=== PATIENT | female | born 1985 | race African-American/Black ===

== ENCOUNTER 2016-11-12 14:52 | Outpatient (CLI) | payer OTHER ==
[2016-11-12 15:18] LABS: BASOPHILS % 0.6 (0.0-1.5); EOSINOPHILS % 5.3 % (0.0-6.8); LYMPHOCYTES # 2.1 # k/uL (0.6-4.0); MEAN CORPUSCULAR HEMOGLOBIN 28.2 pg (28.0-34.0); MONOCYTES # 0.2 # k/uL (0.0-0.9); MONOCYTES % 4.5 % (0.0-11.0)
== END 2016-11-12 14:53 ==
LOC: LAB 14:52
PROVIDERS: ATTEND Nurse Practitioner Psychiatric/Mental Health
DX: D72.819 Decreased white blood cell count, unspecified (principal)
CPT/HCPCS: 36415; 85025

== ENCOUNTER 2017-01-08 08:27 | Outpatient (CLI) | payer OTHER ==
[2017-01-08 09:15] LABS: BASOPHILS % 0.4 (0.0-1.5); EOSINOPHILS % 0.8 % (0.0-6.8); LYMPHOCYTES # 1.1 # k/uL (0.6-4.0); MEAN CORPUSCULAR HEMOGLOBIN 27.6 pg (28.0-34.0); MONOCYTES # 0.2 # k/uL (0.0-0.9); MONOCYTES % 5.5 % (0.0-11.0)
== END 2017-01-08 08:30 ==
LOC: POD 08:27 → LAB 08:30
PROVIDERS: ATTEND Nurse Practitioner Psychiatric/Mental Health
DX: Z51.81 Encounter for therapeutic drug level monitoring (principal); Z79.899 Other long term (current) drug therapy; E03.9 Hypothyroidism, unspecified
CPT/HCPCS: 36415; 84443; 85025

== ENCOUNTER 2017-01-19 14:41 | Outpatient (CLI) | payer OTHER | END 2017-01-19 14:42 | LOC: POD 14:41 | PROVIDERS: ATTEND Podiatrist | DX: B35.1 Tinea unguium (principal); M79.674 Pain in right toe(s); M79.675 Pain in left toe(s) | CPT/HCPCS: 11721; G0463 ==

== ENCOUNTER 2017-02-10 08:58 | Outpatient (CLI) | payer OTHER ==
[2017-02-10 09:25] LABS: BASOPHILS % 1.5 (0.0-1.5); EOSINOPHILS % 2.3 % (0.0-6.8); MEAN CORPUSCULAR HEMOGLOBIN 27.8 pg (28.0-34.0); MEAN CORPUSCULAR VOLUME 92.8 fl (80.0-100.0); MONOCYTES % 6.1 % (0.0-11.0); NEUTROPHILS # 1.4 # k/uL (1.4-7.7)
== END 2017-02-10 09:00 ==
LOC: LAB 08:58
PROVIDERS: ATTEND Nurse Practitioner Psychiatric/Mental Health
DX: Z51.81 Encounter for therapeutic drug level monitoring (principal); Z79.899 Other long term (current) drug therapy
CPT/HCPCS: 36415; 85025

== ENCOUNTER 2017-03-03 09:17 | Outpatient (CLI) | payer OTHER ==
[2017-03-03 09:38] LABS: BASOPHILS % 0.8 (0.0-1.5); EOSINOPHILS % 4.1 % (0.0-6.8); MEAN CORPUSCULAR HEMOGLOBIN 28.1 pg (28.0-34.0); MEAN CORPUSCULAR VOLUME 92.8 fl (80.0-100.0); MONOCYTES % 6.9 % (0.0-11.0); NEUTROPHILS # 2.2 # k/uL (1.4-7.7)
== END 2017-03-03 09:20 ==
LOC: LAB 09:17
PROVIDERS: ATTEND Nurse Practitioner Psychiatric/Mental Health
DX: Z51.81 Encounter for therapeutic drug level monitoring (principal); Z79.899 Other long term (current) drug therapy
CPT/HCPCS: 36415; 85025

== ENCOUNTER 2017-04-06 14:29 | Outpatient (CLI) | payer OTHER | END 2017-04-06 14:30 | LOC: POD 14:29 | PROVIDERS: ATTEND Podiatrist | DX: B35.1 Tinea unguium (principal); M79.674 Pain in right toe(s); M79.675 Pain in left toe(s) | CPT/HCPCS: 11721; G0463 ==

== ENCOUNTER 2017-04-13 06:56 | Outpatient (CLI) | payer OTHER ==
[2017-04-13 07:11] LABS: BASOPHILS % 1.4 (0.0-1.5); EOSINOPHILS % 2.3 % (0.0-6.8); MEAN CORPUSCULAR HEMOGLOBIN 27.6 pg (28.0-34.0); MEAN CORPUSCULAR VOLUME 92.1 fl (80.0-100.0); MONOCYTES % 4.8 % (0.0-11.0); NEUTROPHILS # 1.3 # k/uL (1.4-7.7)
[2017-04-13 07:41] LABS: eGFR (African) > 60; eGFR (Non-African) > 60
== END 2017-04-13 09:57 ==
LOC: LAB 06:56
PROVIDERS: ATTEND Nurse Practitioner Psychiatric/Mental Health
DX: Z51.81 Encounter for therapeutic drug level monitoring (principal)
CPT/HCPCS: 36415; 80053; 85025

== ENCOUNTER 2017-06-11 08:34 | Outpatient (CLI) | payer OTHER ==
[2017-06-11 09:22] LABS: BASOPHILS % 0.9 (0.0-1.5); EOSINOPHILS % 2.5 % (0.0-6.8); MEAN CORPUSCULAR HEMOGLOBIN 29.1 pg (28.0-34.0); MEAN CORPUSCULAR VOLUME 90.1 fl (80.0-100.0); MONOCYTES % 7.9 % (0.0-11.0); NEUTROPHILS # 1.9 # k/uL (1.4-7.7)
== END 2017-06-11 08:44 ==
LOC: LAB 08:34
PROVIDERS: ATTEND Nurse Practitioner Psychiatric/Mental Health
DX: Z51.81 Encounter for therapeutic drug level monitoring (principal)
CPT/HCPCS: 36415; 85025

== ENCOUNTER 2017-07-09 14:06 | Outpatient (CLI) | payer OTHER | END 2017-07-09 14:07 | LOC: POD 14:06 | PROVIDERS: ATTEND Podiatrist | DX: B35.1 Tinea unguium (principal); M79.674 Pain in right toe(s); M79.675 Pain in left toe(s) | CPT/HCPCS: 11721; G0463 ==

== ENCOUNTER 2017-10-08 13:42 | Outpatient (CLI) | payer OTHER | END 2017-10-08 13:43 | LOC: POD 13:42 | PROVIDERS: ATTEND Podiatrist | DX: B35.1 Tinea unguium (principal); M79.674 Pain in right toe(s); M79.675 Pain in left toe(s) | CPT/HCPCS: 11721; G0463 ==

== ENCOUNTER 2017-10-14 14:33 | Outpatient (CLI) | payer OTHER ==
[2017-10-14 14:49] LABS: BASOPHILS % 0.8 (0.0-1.5); EOSINOPHILS % 5.6 % (0.0-6.8); MEAN CORPUSCULAR HEMOGLOBIN 28.4 pg (28.0-34.0); MEAN CORPUSCULAR VOLUME 87.8 fl (80.0-100.0); MONOCYTES % 4.7 % (0.0-11.0)
[2017-10-14 15:07] LABS: eGFR (African) > 60; eGFR (Non-African) > 60
== END 2017-10-14 14:50 ==
LOC: LAB 14:33
PROVIDERS: ATTEND Nurse Practitioner Psychiatric/Mental Health
DX: Z51.81 Encounter for therapeutic drug level monitoring (principal); Z79.899 Other long term (current) drug therapy
CPT/HCPCS: 36415; 80053; 85025

== ENCOUNTER 2018-02-01 15:12 | Outpatient (CLI) | payer OTHER | END 2018-02-01 15:14 | LOC: POD 15:12 | PROVIDERS: ATTEND Podiatrist | DX: B35.1 Tinea unguium (principal); M79.674 Pain in right toe(s); M79.675 Pain in left toe(s) | CPT/HCPCS: 11721; G0463 ==

== ENCOUNTER 2018-02-15 08:23 | Outpatient (CLI) | payer OTHER ==
[2018-02-15 09:50] LABS: EOSINOPHILS % 0.7 % (0.0-6.8); MEAN CORPUSCULAR HEMOGLOBIN 28.2 pg (28.0-34.0); MEAN CORPUSCULAR VOLUME 97.2 fl (80.0-100.0); MONOCYTES % 6.7 % (0.0-11.0); NEUTROPHILS # 2.1 # k/uL (1.4-7.7)
[2018-02-15 09:59] LABS: eGFR (African) > 60; eGFR (Non-African) > 60
== END 2018-02-15 08:24 ==
LOC: LAB 08:23
PROVIDERS: ATTEND Psychiatry & Neurology Psychiatry
DX: Z79.899 Other long term (current) drug therapy (principal)
CPT/HCPCS: 36415; 80053; 84443; 85025

== ENCOUNTER 2018-05-13 14:30 | Outpatient (CLI) | payer OTHER | END 2018-05-13 14:35 | LOC: POD 14:30 | PROVIDERS: ATTEND Podiatrist | DX: B35.1 Tinea unguium (principal); M79.674 Pain in right toe(s); M79.675 Pain in left toe(s) | CPT/HCPCS: 11721; G0463 ==

== ENCOUNTER 2018-06-24 08:06 | Outpatient (CLI) | payer OTHER ==
[2018-06-24 09:33] LABS: eGFR (African) > 60; eGFR (Non-African) > 60
[2018-06-24 10:57] LABS: BASOPHILS % 0.8 (0.0-1.5); MEAN CORPUSCULAR HEMOGLOBIN 27.6 pg (28.0-34.0); MEAN CORPUSCULAR VOLUME 90.1 fl (80.0-100.0); MONOCYTES % 5.8 % (0.0-11.0); NEUTROPHILS # 1.6 # k/uL (1.4-7.7)
== END 2018-06-24 11:51 ==
LOC: LAB 08:06
PROVIDERS: ATTEND Nurse Practitioner Family
DX: D72.819 Decreased white blood cell count, unspecified (principal); Z79.899 Other long term (current) drug therapy; Z51.81 Encounter for therapeutic drug level monitoring; D50.9 Iron deficiency anemia, unspecified; R63.5 Abnormal weight gain; E66.9 Obesity, unspecified; E03.9 Hypothyroidism, unspecified
CPT/HCPCS: 36415; 80053; 80171; 82607; 82728; 82746; 84439; 84443; 85025

== ENCOUNTER 2018-06-28 14:10 | Outpatient (CLI) | payer OTHER | END 2018-06-28 14:12 | LOC: CARD 14:10 | PROVIDERS: ATTEND Internal Medicine Cardiovascular Disease | DX: R01.1 Cardiac murmur, unspecified (principal) ==

== ENCOUNTER 2018-07-13 08:29 | Outpatient (CLI) | payer OTHER ==
[2018-07-13 18:21] LABS: TOTAL PROTEIN 6.8 g/dL (6.0-8.5)
[2018-07-13 19:01] LABS: BASO % 0.5 % (0.0-1.5); EOS % 0.1 % (0.0-6.8); LYMPH ABS # 1.77 thou/uL (0.60-4.00); MCH. 27.8 pg (28.0-34.0); MCV 89.3 fL (80.0-100.0); MONOCYTE ABS # 0.29 thou/uL (0.00-0.90); PLATELET COUNT 316 thou/uL (130-400)
== END 2018-07-13 08:30 ==
LOC: LAB 08:29
PROVIDERS: ATTEND Psychiatry & Neurology Psychiatry
DX: Z51.81 Encounter for therapeutic drug level monitoring (principal); Z79.899 Other long term (current) drug therapy
CPT/HCPCS: 36415; 80053; 85025

== ENCOUNTER 2018-08-16 09:34 | Outpatient (CLI) | payer OTHER | END 2018-08-16 09:36 | LOC: LAB 09:34 | PROVIDERS: ATTEND Nurse Practitioner Family | DX: D72.819 Decreased white blood cell count, unspecified (principal); Z79.899 Other long term (current) drug therapy; D50.9 Iron deficiency anemia, unspecified; E66.9 Obesity, unspecified; E11.9 Type 2 diabetes mellitus without complications; E03.9 Hypothyroidism, unspecified; R63.5 Abnormal weight gain | CPT/HCPCS: 36415; 80171; 82607; 82728; 82746; 83036; 84439; 84443 ==

== ENCOUNTER 2019-04-28 13:37 | Outpatient (CLI) | payer MEDICARE, OTHER ==
[2019-04-28 14:03] LABS: BASOPHILS % 0.4 % (0.0-1.5); NEUTROPHILS # 2.5 # k/uL (1.4-7.7)
[2019-04-28 15:04] LABS: eGFR (Non-African) > 60
== END 2019-04-28 13:40 ==
LOC: LAB 13:37
PROVIDERS: ATTEND Family Medicine
DX: R06.09 Other forms of dyspnea (principal); R60.9 Edema, unspecified; E03.9 Hypothyroidism, unspecified; Z79.899 Other long term (current) drug therapy
CPT/HCPCS: 36415; 80053; 82607; 82746; 83880; 84439; 84443; 85025

== ENCOUNTER 2019-05-03 12:28 | Outpatient (CLI) | payer OTHER ==
[2019-05-03 14:05] LABS: eGFR (Non-African) > 60
== END 2019-05-03 12:30 ==
LOC: LAB 12:28
PROVIDERS: ATTEND Nurse Practitioner Family
DX: D50.9 Iron deficiency anemia, unspecified (principal); E03.9 Hypothyroidism, unspecified; E04.9 Nontoxic goiter, unspecified; E55.9 Vitamin D deficiency, unspecified; Z79.899 Other long term (current) drug therapy
CPT/HCPCS: 36415; 80048; 82306; 83540; 83550; 84439; 84443

== ENCOUNTER 2019-05-15 10:22 | Outpatient (CLI) | payer OTHER ==
--- NOTE | 2019-05-15 11:57 | Diagnostic Imaging Report ---
ARIADNA ZIMMERMAN [facility] [address] [facility] [address] [address] Report Submission Date: May 15, 2019 11:45:44 AM CDT Patient Study Name: JENNIFER MCKEON Date: May 15, 2019 11:03:56 AM CDT Modality Type: US\SR Gender: F Description: : 81 Institution: [facility] Physician: ARIADNA ZIMMERMAN Thyroid ultrasound History: Unexplained weight gain Transverse and longitudinal images were obtained through the thyroid gland. The thyroid isthmus is normal at 4 mm. Both thyroid lobes demonstrate homogeneous echotexture without evident mass. The right thyroid lobe measures 4.2 x 1.7 x 1.2 cm with a right thyroid volume of 4 mL. The left thyroid lobe measures 4.0 x 1.4 x 1.4 cm with a left thyroid volume of 3.8 mL. Impression: Normal thyroid ultrasound. Electronically signed on May 15, 2019 11:45:44 AM CDT by: Ally SOSA
== END 2019-05-15 10:23 ==
LOC: RAD 10:22
PROVIDERS: ATTEND Nurse Practitioner Family
DX: E04.9 Nontoxic goiter, unspecified (principal)
CPT/HCPCS: 76536

== ENCOUNTER 2019-08-31 14:29 | Outpatient (CLI) | payer OTHER ==
--- NOTE | 2019-09-05 11:38 | OP Clinic Progress Note ---
DATE OF VISIT: 08/31/2019 SUBJECTIVE: Sharon is a 34-year-old female presenting to clinic with her mother in the room today for a followup of a left fourth interdigital space macerated lesion. The patient has been doing iodine to the area twice daily recently for the last couple of weeks and states that she is still having some pain in that area. She does not admit to any other issues in the feet except for toenails that are long that she needs help trimming. She would like to continue having this done as needed. She also has calluses that she needs trimmed that she cannot do on her own and states that she is using a lotion at times on her feet. She does not admit to any fever, chills, nausea, vomiting or shortness of breath or chest pain. OBJECTIVE: Vitals: Temperature 97.6, heart rate 89, respiration rate 18, blood pressure 134/91, O2 sat is 100% on room air. Vascular: 2+ DP right foot, 1+ DP left foot, and 1+ PT bilaterally. Her left foot capillary refill time is less than 3 seconds to the toes, left foot. There is mild edema noted in the left foot. Dermatologic: There is macerated tissue in the fourth interdigital space with a slight open lesion within that maceration. This area is without any erythema or malodor or purulence noted. There is no ecchymosis noted. There is slight dark discoloration near the wound area in the skin that this is also present in the dorsal distal aspect of the other toes left foot, just before the toenail. This appears to be fairly normal for her. The patient does not have any obvious hardening or necrosis of any skin at all noted. The toenails are long, thick and discolored bilaterally. There are also hyperkeratotic lesions noted sub-first metatarsal head bilaterally as well as on the medial heel bilaterally. These were trimmed down to intact skin. Musculoskeletal: There is slight pain with palpation noted at the macerated tissue area left fourth interdigital space. There are no other gross abnormalities noted, left foot. Adductor varus fourth and fifth toes left foot. Neurologic: Light touch sensation is intact to the toes left foot. ASSESSMENT AND PLAN: 1. Ulcer fourth interdigital space, left foot. 2. Dermatophytosis of nails bilaterally. 3. Hyperkeratosis to the feet bilaterally. 4. (Possible type 2 diabetes mellitus E11.69 per chart review, but the patient denies as well as her mother, being diabetic). PROCEDURE #1: Sharp debridement of the left fourth interdigital space ulcer was performed down to and including the subcutaneous tissue layer with a #15 blade. There was no bleeding noted. Most of it was maceration tissue that was removed and efforts to debride the sort of base that was there was present. The site was rinsed with a copious amount of normal saline and dried today. The patient is to continue iodine daily once a day to between the toes and to do lotion to the heels daily. She was encouraged to use Aquaphor if possible. PROCEDURE #2: Paring of corns and calluses 2 through 4 bilateral feet was performed today without incident. PROCEDURE #3: Trimming of the toenails 1 through 5 bilaterally without incident. The patient is to return to clinic in two weeks in the [facility] for followup to make sure that the wound is improving as well as to continue treatment there. We will continue nails and calluses as needed about every three months. The patient has no further questions or concerns and we will see her in two weeks in [facility]. Randall Henriquez D.P.M. /[employer] [id number] /mab MTDD
== END 2019-08-31 14:34 ==
LOC: POD 14:29
PROVIDERS: ATTEND Podiatrist Foot & Ankle Surgery
DX: L97.529 Non-pressure chronic ulcer of other part of left foot with unspecified severity (principal); B35.3 Tinea pedis; L85.9 Epidermal thickening, unspecified
CPT/HCPCS: 11042; 11056; 11719; 99213; G0463; A4554

== ENCOUNTER 2019-10-06 07:14 | Outpatient (CLI) | payer OTHER ==
[2019-10-06 07:43] LABS: BASOPHILS % 0.6 % (0.0-1.5); NEUTROPHILS # 2.6 # k/uL (1.4-7.7)
[2019-10-06 08:29] LABS: eGFR (Non-African) > 60
[2019-10-06 08:30] LABS: HDL 64 mg/dL (>40)
== END 2019-10-06 07:19 ==
LOC: LAB 07:14
PROVIDERS: ATTEND Nurse Practitioner Family
DX: R63.5 Abnormal weight gain (principal); R06.00 Dyspnea, unspecified; R60.0 Localized edema; Z79.899 Other long term (current) drug therapy
CPT/HCPCS: 36415; 80053; 80061; 83880; 84439; 84443; 85025